=== PATIENT | male | born 2000 | race African-American/Black ===

== ENCOUNTER 2019-01-12 14:56 | Inpatient (IN) | payer MEDICAID ==
[~2019-01-12] VITALS: Ht 180.3 cm; Wt 79.5 kg
[2019-01-12 15:46] LABS: APPEARANCE CLEAR (CLEAR); BILIRUBIN NEGATIVE (NEGATIVE); COLOR YELLOW (YELLOW); GLUCOSE NEGATIVE (NEGATIVE); KETONE NEGATIVE (NEGATIVE); NITRITE NEGATIVE (NEGATIVE); PROTEIN NEGATIVE (NEGATIVE); SPECIFIC GRAVITY 1.025 (1.005-1.020); UROBILINOGEN NORMAL (NORMAL)
[2019-01-12 15:57] LABS: ALBUMIN 4.4 g/dL (3.4-5.0); ALKALINE PHOSPHATASE 69 U/L (46-116); ALT (SGPT) 34 U/L (10-68); BILIRUBIN - TOTAL 0.43 mg/dL (0.2-1.3); CALC OSMOLALITY 279 mosm/kg (275-300); CALCIUM 8.3 mg/dL (8.5-10.1); CARBON DIOXIDE 23.5 mmol/L (21.0-32.0); CHLORIDE - SERUM 101 mmol/L (98-107); CREATININE - SERUM 1.2 mg/dL (0.6-1.3); GLUCOSE 171 mg/dL (74-106); POTASSIUM - SERUM 3.1 mmol/L (3.5-5.1); PROTEIN - SERUM 7.9 g/dL (6.4-8.2); SODIUM 139 mmol/L (136-145); UREA NITROGEN 8 mg/dL (7-18); eGFR NON AFRICAN AMERICAN 83 mL/min (90-120)
[2019-01-12 16:23] LABS: BASOPHILS 0.2 % (0-2); EOSINOPHILS 0.7 % (0-7); HEMATOCRIT 45.2 % (42.0-54.0); HEMOGLOBIN 16.3 g/dL (13.5-17.5); IMMATURE GRANULOCYTES 0.3 % (0-5); MCHC 36.1 g/dL (31.0-37.0); MCV 85.9 fL (80.0-100.0); MEAN PLATELET VOLUME 10.8 fL (7.4-10.4); MONOCYTES 4.7 % (2-11); NEUTROPHILS 82.1 % (40-80); PLATELET COUNT 164 10x3/uL (130-400); RBC 5.26 10x6/uL (4.20-6.10); RDW 11.8 % (11.5-14.5); WBC 19.3 10x3/uL (4.8-10.8)
[2019-01-12 17:27] LABS: UDS - AMPHET NEGATIVE QUAL (NEGATIVE); UDS - BARB NEGATIVE QUAL (NEGATIVE); UDS - BENZO NEGATIVE QUAL (NEGATIVE); UDS - COCAINE NEGATIVE QUAL (NEGATIVE); UDS - OPIATE NEGATIVE QUAL (NEGATIVE); UDS - PCP NEGATIVE QUAL (NEGATIVE); UDS - THC POSITIVE QUAL (NEGATIVE)
[2019-01-12 18:29] LABS: APPEARANCE HAZY (CLEAR); BILIRUBIN NEGATIVE (NEGATIVE); COLOR YELLOW (YELLOW); GLUCOSE NEGATIVE (NEGATIVE); KETONE NEGATIVE (NEGATIVE); NITRITE NEGATIVE (NEGATIVE); PROTEIN TRACE mg/dL (NEGATIVE); SPECIFIC GRAVITY 1.025 (1.005-1.020); UROBILINOGEN NORMAL (NORMAL)
--- NOTE | 2019-01-12 18:33 | NUR ---
URINE SENT TO LAB
--- NOTE | 2019-01-12 18:49 | NUR ---
MOM'S NUMBER, EMERGENCY CONTACT [phone]
--- NOTE | 2019-01-12 19:16 | NUR ---
REPORT TO SID CAMPA AT THIS TIME.
[2019-01-12 21:10] VITALS: BP 114/76
[2019-01-12 22:36] VITALS: BP 114/50
--- NOTE | 2019-01-12 22:47 | NUR ---
REPORT CALLED TO CECIL.
--- NOTE | 2019-01-12 22:55 | NUR ---
FLAGYL INFUSION COMPLETE AT THIS TIME. PT TO FLOOR VIA WHEELCHAIR AT THIS TIME.
--- NOTE | 2019-01-12 23:17 | NUR ---
RECIEVED TO ROOM. ALERT,ORIENTED.NO COMPLAINTS VOICED. IV INFUSING TO LFA WITHOUT REDNESS OR EDEMA NOTED. ORIENTED TO ROOM. CL IN REACH
[2019-01-13 00:30] VITALS: BP 124/64
[2019-01-13 01:40] VITALS: BP 124/64; Ht 180.3 cm; Wt 79.5 kg
[2019-01-13 04:00] VITALS: BP 118/66
--- NOTE | 2019-01-13 07:30 | NUR ---
REC'D IN WALKING ROUND AWAKE AND ALERT. RESP EVEN AND UNLABORED WITH NO DISTRESS NOTED. CAN EXPRESS NEEDS AND WANTS. NO C/O NOTED OR VOICED. ASSESSMENT COMPLETED. C/L IN REACH AT BEDSIDE.
--- NOTE | 2019-01-13 09:10 | HP ---
PATIENT: HARJIT LILLY MEDICAL RECORD: [id number] ACCOUNT: [id number] LOCATION:[facility] [id number] : 89 ADMISSION DATE: 01/12/19 PCP: RAFIQ WELCH MD HISTORY AND PHYSICAL EXAMINATION HISTORY OF PRESENT ILLNESS: Harjit is a 18-year-old male that presents to the Emergency Room with onset of abdominal pain today. No previous problems. His white count is elevated at 19,000. His potassium is a little bit low at 3.1, glucose is 171. Lactic acid is 4.2, drug screen is positive for pot, serologies for urine and GC is pending. CT of his abdomen reveals wall thickening of the distal small bowel suggesting enteritis. Colon also shows some changes that are concerning for colitis. GI consult with Dr. Sanches is being obtained. He is going to be admitted for IV antibiotics and further evaluation. PAST MEDICAL HISTORY: Unremarkable. PAST SURGICAL HISTORY: None. ALLERGIES: None. MEDICATIONS: None. FAMILY HISTORY: Unavailable. SOCIAL HISTORY: The patient does admit to heavy every day marijuana use. He denies alcohol or other drugs. REVIEW OF SYSTEMS: No fever, no chest pain, no shortness of breath. No rash, no conjunctivitis. No dysuria. No recent diarrhea or constipation prior to today. He does complain of abdominal pain with acute onset. He denies any travel outside of the area. He has city water. PHYSICAL EXAMINATION: GENERAL: Healthy in appearance, multiple tattoos. HEENT: Sclerae nonicteric. NECK: Soft. HEART: Regular. LUNGS: Clear. ABDOMEN: Soft with some mild tenderness at this time, but he has received meds. NEUROLOGIC: Without any gross focal deficits. IMPRESSION: Possible enteritis/colitis and heavy marijuana use. PLAN: IV fluids, IV antibiotics, stool studies. GI consult. I want to rule out an inflammatory bowel condition. See orders for rest of the plan. TRANSINT:[id number] Voice Confirmation ID: [id number] DOCUMENT ID: [id number] HISTORY AND PHYSICAL [id number] VIJAYAOLIVIAALICIA JOYCELYN NELSON DO at 0910 CC: [id number] DICTATION DATE: 01/12/192139 RESIDENT SERVICE COORDINATOR: 01/12/19 2326 ADM IN [place] [id number] [place] [address]
[2019-01-13 09:14] VITALS: BP 140/50
[2019-01-13 12:27] VITALS: BP 141/66
[2019-01-13] MEDS ORDERED: FLORAJEN3 CAPS460 MG PO (15:26)
[2019-01-13] MEDS ORDERED: LEVAQUIN750 MG PO (15:26)
[2019-01-13] MEDS ORDERED: FLAGYL500 MG PO (15:27)
--- NOTE | 2019-01-13 16:39 | NUR ---
DC HOME AT THIS TIME VOICE UNDERSTANDING OF DC SUMMARY. NO C/O NOTED OR VOICED. IV DC.
--- NOTE | 2019-01-17 16:56 | MORECARE ---
CASE MANAGEMENT DISCHARGE SUMMARY PATIENT: ZAIDA LILLY UNIT: [id number] ADM DATE: 01/12/19 AGE: 18 : 99 SEX: M ROOM/BED: D.2236 AUTHOR: ALICIA JAUREGUI PHYSICIAN: REFERRING PHYSICIAN: JOYCELYN NELSON DO DATE OF SERVICE: 01/17/19 Discharge Plan Patient Name: ZAIDA LILLY [facility] [facility] 2000 Planned Disposition: Anticipated Discharge Date: Discharge Date: 01/13/2019 Expected LOS: 0 Initial Reviewer: [id number] Initial Review Date: 01/17/2019 Generated: 01/17/19 5:56 pm Patient Name: ZAIDA LILLY Page [id number] at 1656 All edits/amendments must be made on the electronic document DICTATION DATE: 01/17/191655 [employer] FSCM DEVELOPER: CHEL 01/17/191655 RPT#: [id number] DC DATE:01/13/19 STATUS: DIS IN [facility] [address] [place] [address] END OF REPORT
== END 2019-01-13 16:40 | disposition home or self-care (01) | DRG 392 ==
LOC: D.ER 14:56 → D.MS 21:11 → D.EDHOLD 21:11 → D.MS 21:43
PROVIDERS: Emergency Medicine; ADMIT Family Medicine; ATTEND Family Medicine
DX: K52.9 Noninfective gastroenteritis and colitis, unspecified (principal); F12.90 Cannabis use, unspecified, uncomplicated; E86.0 Dehydration

== ENCOUNTER 2019-06-01 08:43 | Emergency (ER) | payer MEDICAID ==
[~2019-06-01] VITALS: Ht 180.3 cm; Wt 79.4 kg
[~2019-06-01 08:43] MED LIST: FLAGYL500 MG PO; FLORAJEN3 CAPS460 MG PO; LEVAQUIN750 MG PO
[2019-06-01 09:01] VITALS: Ht 180.3 cm; Wt 79.4 kg
[2019-06-01 10:03] LABS: HEMATOCRIT 42.6 % (42.0-54.0); HEMOGLOBIN 15.7 g/dL (13.5-17.5); MCH 31.1 pg (26.0-34.0); MCHC 36.9 g/dL (31.0-37.0); MCV 84.4 fL (80.0-100.0); MEAN PLATELET VOLUME 11.5 fL (7.4-10.4); PLATELET COUNT 197 10x3/uL (130-400); RBC 5.05 10x6/uL (4.20-6.10); RDW 11.9 % (11.5-14.5); WBC 21.2 10x3/uL (4.8-10.8)
[2019-06-01 10:15] LABS: ALBUMIN 4.1 g/dL (3.4-5.0); ALKALINE PHOSPHATASE 64 U/L (46-116); ALT (SGPT) 25 U/L (10-68); BILIRUBIN - TOTAL 0.42 mg/dL (0.2-1.3); CALC OSMOLALITY 281 mosm/kg (275-300); CALCIUM 8.5 mg/dL (8.5-10.1); CARBON DIOXIDE 22.8 mmol/L (21.0-32.0); CHLORIDE - SERUM 104 mmol/L (98-107); CREATININE - SERUM 1.1 mg/dL (0.6-1.3); GLUCOSE 170 mg/dL (74-106); POTASSIUM - SERUM 3.4 mmol/L (3.5-5.1); PROTEIN - SERUM 7.7 g/dL (6.4-8.2); SODIUM 139 mmol/L (136-145); UREA NITROGEN 13 mg/dL (7-18); eGFR NON AFRICAN AMERICAN > 90 mL/min (90-120)
[2019-06-01 10:20] LABS: AMYLASE - SERUM 48 U/L (25-115); LIPASE 120 U/L (73-393); TROPONIN-I < 0.017 ng/mL (0.000-0.060)
[2019-06-01 10:48] LABS: APPEARANCE CLEAR (CLEAR); COLOR YELLOW (YELLOW); GLUCOSE NEGATIVE (NEGATIVE); NITRITE NEGATIVE (NEGATIVE); PROTEIN NEGATIVE (NEGATIVE); SPECIFIC GRAVITY 1.025 (1.005-1.020)
[2019-06-01 10:49] LABS: BILIRUBIN NEGATIVE (NEGATIVE); KETONE MODERATE mg/dL (NEGATIVE); UROBILINOGEN NORMAL (NORMAL)
[2019-06-01 11:23] LABS: EOSINOPHILS 1 % (0-7); LYMPHOCYTES 34 % (15-50); MONOCYTES 7 % (2-11); NEUTROPHILS 56 % (40-80); PLATELET ESTIMATE NORMAL
[2019-06-01] MEDS ORDERED: ZOFRAN ODT4 MG/UDTAB PO (13:58)
[2019-06-01 14:14] VITALS: BP 141/68
== END 2019-06-01 14:15 | disposition home or self-care (01) ==
LOC: D.ER 08:43
PROVIDERS: Family Medicine
DX: R10.9 Unspecified abdominal pain (principal); R11.2 Nausea with vomiting, unspecified

== ENCOUNTER 2020-06-11 17:57 | Emergency (ER) | payer MEDICAID ==
[~2020-06-11] VITALS: Ht 180.3 cm; Wt 86.4 kg
[~2020-06-11 17:57] MED LIST changes: +ZOFRAN ODT4 MG/UDTAB PO
[2020-06-11 18:01] VITALS: Ht 180.3 cm; Wt 86.4 kg
[2020-06-11 18:48] LABS: BASOPHILS 0.4 % (0-2); EOSINOPHILS 6.5 % (0-7); HEMATOCRIT 48.2 % (42.0-54.0); HEMOGLOBIN 16.9 g/dL (13.5-17.5); LYMPHOCYTES 32.6 % (15-50); MCH 30.7 pg (26.0-34.0); MCHC 35.1 g/dL (31.0-37.0); MCV 87.6 fL (80.0-100.0); MEAN PLATELET VOLUME 10.4 fL (7.4-10.4); MONOCYTES 6.6 % (2-11); NEUTROPHILS 52.9 % (40-80); PLATELET COUNT 161 10x3/uL (130-400); RDW 11.6 % (11.5-14.5); WBC 8.4 10x3/uL (4.8-10.8)
[2020-06-11 19:04] LABS: CALC OSMOLALITY 275 mosm/kg (275-300); CALCIUM 8.5 mg/dL (8.5-10.1); CHLORIDE - SERUM 104 mmol/L (98-107); CREATININE - SERUM 1.1 mg/dL (0.6-1.3); POTASSIUM - SERUM 4.3 mmol/L (3.5-5.1); SODIUM 139 mmol/L (136-145); UREA NITROGEN 9 mg/dL (7-18); eGFR NON AFRICAN AMERICAN > 90 mL/min (90-120)
[2020-06-11 19:10] LABS: ALBUMIN 3.9 g/dL (3.4-5.0); ALKALINE PHOSPHATASE 76 U/L (30-120); ALT (SGPT) 32 U/L (10-68); AMYLASE - SERUM 72 U/L (25-115); BILIRUBIN - TOTAL 0.28 mg/dL (0.2-1.3); LIPASE 166 U/L (73-393); PROTEIN - SERUM 7.6 g/dL (6.4-8.2)
[2020-06-11 19:15] LABS: GLUCOSE 89 mg/dL (74-106)
[2020-06-11 19:38] LABS: BILIRUBIN NEGATIVE (NEGATIVE); KETONE NEGATIVE (NEGATIVE); NITRITE NEGATIVE (NEGATIVE); UROBILINOGEN NORMAL (NORMAL)
[2020-06-11] MEDS ORDERED: ZOFRAN ODT4 MG/UDTAB PO (20:07)
[2020-06-11 20:40] VITALS: BP 143/88
== END 2020-06-11 21:17 | disposition home or self-care (01) ==
LOC: D.ER 17:57
PROVIDERS: Emergency Medicine
DX: R11.2 Nausea with vomiting, unspecified (principal); R19.7 Diarrhea, unspecified

== ENCOUNTER 2021-01-18 09:36 | Emergency (ER) | payer BC ==
[~2021-01-18] VITALS: Ht 180.3 cm; Wt 65.9 kg
[2021-01-18 09:54] VITALS: BP 148/100; Ht 180.3 cm; Wt 65.9 kg
[2021-01-18 10:22] LABS: BASOPHILS 0.2 % (0-2); HEMATOCRIT 48.4 % (42.0-54.0); HEMOGLOBIN 17.1 g/dL (13.5-17.5); IMMATURE GRANULOCYTES 0.3 % (0-5); LYMPHOCYTE ABS# 2.69 10x3/uL (1.32-3.57); LYMPHOCYTES 15.9 % (15-50); MCH 30.9 pg (26.0-34.0); MCHC 35.3 g/dL (31.0-37.0); MCV 87.5 fL (80.0-100.0); MEAN PLATELET VOLUME 10.9 fL (7.4-10.4); MONOCYTES 6.6 % (2-11); NEUTROPHIL ABS# 12.67 10x3/uL (1.78-5.38); PLATELET COUNT 178 10x3/uL (130-400); RBC 5.53 10x6/uL (4.20-6.10); RDW 11.7 % (11.5-14.5); WBC 16.9 10x3/uL (4.8-10.8)
[2021-01-18 10:30] LABS: CALC OSMOLALITY 276 mosm/kg (275-300); CALCIUM 8.9 mg/dL (8.5-10.1); CARBON DIOXIDE 25.3 mmol/L (21.0-32.0); CHLORIDE - SERUM 102 mmol/L (98-107); CREATININE - SERUM 1.1 mg/dL (0.6-1.3); GLUCOSE 153 mg/dL (74-106); POTASSIUM - SERUM 3.3 mmol/L (3.5-5.1); SODIUM 138 mmol/L (136-145); UREA NITROGEN 7 mg/dL (7-18); eGFR NON AFRICAN AMERICAN 90 mL/min (90-120)
[2021-01-18 10:41] LABS: ALBUMIN 4.5 g/dL (3.4-5.0); ALKALINE PHOSPHATASE 70 U/L (30-120); ALT (SGPT) 22 U/L (10-68); AMYLASE - SERUM 67 U/L (25-115); LIPASE 85 U/L (73-393)
[2021-01-18 10:43] LABS: TROPONIN-I < 0.017 ng/mL (0.000-0.060)
[2021-01-18 11:32] LABS: BILIRUBIN NEGATIVE (NEGATIVE); KETONE 1+ mg/dL (NEGATIVE); NITRITE NEGATIVE (NEGATIVE); UROBILINOGEN NORMAL mg/dL (< 2)
[2021-01-18 11:33] LABS: WHITE CELLS - URINE 0-5 HPF (0-1)
[2021-01-18 12:28] LABS: UDS - AMPHET NEGATIVE QUAL (NEGATIVE); UDS - BARB NEGATIVE QUAL (NEGATIVE); UDS - BENZO NEGATIVE QUAL (NEGATIVE); UDS - COCAINE NEGATIVE QUAL (NEGATIVE); UDS - OPIATE NEGATIVE QUAL (NEGATIVE); UDS - PCP NEGATIVE QUAL (NEGATIVE); UDS - THC POSITIVE QUAL (NEGATIVE)
[2021-01-18] MEDS ORDERED: ZOFRAN ODT4 MG/UDTAB PO (13:03)
== END 2021-01-18 13:26 | disposition home or self-care (01) ==
LOC: D.ER 09:36
PROVIDERS: Family Medicine
DX: A08.4 Viral intestinal infection, unspecified (principal); R11.2 Nausea with vomiting, unspecified; R10.33 Periumbilical pain